=== PATIENT | male | born 1945 | race Caucasian/White ===

== ENCOUNTER → 2016-11-06 | Outpatient (CLI) | payer MEDICARE ==
[~2016-11-06] VITALS: Ht 172.7 cm; Wt 90.9 kg
[~2016-11-06] MED LIST: ALTACE10 M1 PO; CLINORIL200 MG PO; CLOPIDOGREL PO; FENOFIBRATE145 MG PO; GABAPENTIN300 M1 PO; GLUCOPHAGE1000 MG PO; LIPITOR 80MG80 MG PO; METFORMIN500 MG PO; NORCO 325 MG-51 TAB PO; NORTRIPTYLINE H10 M2 PO; PLAVIX 75MG TAB75 MG PO; PROSCAR PO; ZESTRIL10 M1 PO
[2016-11-06 12:47] VITALS: BP 135/92
[2016-11-06 15:00] VITALS: BP 132/78
--- NOTE | 2016-11-06 15:00 | NUR ---
Notify AG Lacy, that IV Abx complete. Request dressing orders. Instructs to apply wet to dry dressing, no add'l PO Abx orders. Inform pt that provider requests he return after to be admitted through the ER. Pt reports that he will return either Thursday night or Thursday morning and be admitted if need be. Dressing applied to 3rd digit on L foot. All of 3rd digit noted to be red, warm and swollen. Posterior pad of toe with large calloused area that is torn away from toe. Pinpoint necrotic area in the center of this loose tissue. Lift skin away to visualize underlying tissue, note moderate amount purulent drainage below. Cleanse area with NS, apply wet guaze and dry kerlix. Send remainder of supplies home with pt and instruct to remove for showers and reapply wet to dry.
== END ==
LOC: RAD 11:29 → AMSURD 11:29
DX: L03.90 Cellulitis, unspecified (principal); L97.909 Non-pressure chronic ulcer of unspecified part of unspecified lower leg with unspecified severity
CPT/HCPCS: J1956; J3370; J7050

== ENCOUNTER 2016-11-07 20:50 | Outpatient (RCR) | payer MEDICARE ==
[~2016-11-07] VITALS: Ht 172.7 cm; Wt 90.9 kg
[~2016-11-07 20:50] MED LIST changes: -CLOPIDOGREL PO; -GLUCOPHAGE1000 MG PO; -LIPITOR 80MG80 MG PO; -NORTRIPTYLINE H10 M2 PO; -ZESTRIL10 M1 PO
[2016-11-07 21:05] VITALS: BP 139/80
[2016-11-07 23:55] VITALS: BP 140/77
[2016-11-08 10:07] VITALS: BP 122/107
[2016-11-08 11:05] VITALS: BP 132/77
[2016-11-08 18:54] VITALS: BP 140/77
[2016-11-08 20:24] VITALS: BP 168/67
[2016-11-09 08:00] VITALS: BP 136/80
[2016-11-09 20:00] VITALS: BP 130/90
[2016-11-09 21:01] VITALS: BP 132/66
[2016-11-10 08:00] VITALS: BP 136/86
[2016-11-10 09:29] VITALS: BP 141/67
[2016-11-10 19:14] VITALS: BP 128/83
[2016-11-10 20:41] VITALS: BP 138/78
[2016-11-11 07:29] VITALS: BP 134/79
[2016-11-11 19:22] VITALS: BP 155/95
[2016-11-11 20:54] VITALS: BP 139/78
[2016-11-12 08:30] VITALS: BP 138/71
[2016-11-12 09:47] VITALS: BP 123/69
== END 2016-11-12 11:00 | disposition home or self-care (01) ==
LOC: AMSURD 20:50
DX: L97.909 Non-pressure chronic ulcer of unspecified part of unspecified lower leg with unspecified severity (principal); L03.90 Cellulitis, unspecified
CPT/HCPCS: J1956; J3370; J7050

== ENCOUNTER → 2016-11-07 | Outpatient (CLI) | payer MEDICARE ==
[2016-11-06 15:00] VITALS: BP 132/78
== END ==
LOC: LAB 21:01
DX: L03.032 Cellulitis of left toe (principal); L89.899 Pressure ulcer of other site, unspecified stage

== ENCOUNTER → 2016-11-10 | Outpatient (CLI) | payer MEDICARE ==
[2016-11-09 21:01] VITALS: BP 132/66
[~2016-11-10] MED LIST changes: +CLOPIDOGREL PO; +GLUCOPHAGE1000 MG PO; +LIPITOR 80MG80 MG PO; +NORTRIPTYLINE H10 M2 PO; +ZESTRIL10 M1 PO
== END ==
LOC: LAB 08:01
DX: Z01.89 Encounter for other specified special examinations (principal)

== ENCOUNTER 2016-12-01 19:05 | Outpatient (RCR) | payer MEDICARE ==
[~2016-12-01] VITALS: Ht 175.3 cm; Wt 90.9 kg
[~2016-12-01 19:05] MED LIST changes: -CLOPIDOGREL PO; -GLUCOPHAGE1000 MG PO; -LIPITOR 80MG80 MG PO; -NORTRIPTYLINE H10 M2 PO; -ZESTRIL10 M1 PO
[2016-12-01 19:20] VITALS: BP 146/89
--- NOTE | 2016-12-01 19:30 | NUR ---
Spoke with Nona, pharmacist at [facility] regarding vancomycin dosing orders and trough. Per Nona, ok to start infusion after drawing lab for vancomycin trough. Do not need to wait for results as indicated on EMAR alert.
[2016-12-01 21:14] VITALS: BP 147/82
[2016-12-02 08:53] VITALS: BP 131/83
[2016-12-02 09:16] VITALS: BP 135/82
--- NOTE | 2016-12-02 12:55 | NUR ---
Per Nona pharmacist at [facility], patient is to have a creatinine and vancomycin trough drawn 12/03/16 prior to 0800 dose. Dose is to be held until [facility] pharmacy has been notified of results of creatinine level. [facility] pharmacist will provide further instruction regarding administration of vancomycin at that time. Charge nurse Isabel Cox RN and Clinical coordinator Janelle Barrios RN notified of the above.
[2016-12-02] MEDS ORDERED: GLUCOPHAGE1000 MG PO (15:50)
[2016-12-02] MEDS ORDERED: CLOPIDOGREL PO (15:51)
[2016-12-02] MEDS ORDERED: LIPITOR 80MG80 MG PO (15:51)
[2016-12-02] MEDS ORDERED: ZESTRIL10 M1 PO (15:51)
[2016-12-02] MEDS ORDERED: NORTRIPTYLINE H10 M2 PO (15:52)
[2016-12-02 19:27] VITALS: BP 142/83
[2016-12-02 21:10] VITALS: BP 155/87
[2016-12-03 08:44] VITALS: BP 139/85
[2016-12-03 10:05] VITALS: BP 134/75
[2016-12-03 15:07] VITALS: BP 153/78
[2016-12-03 16:54] VITALS: BP 128/75
[2016-12-03 21:25] VITALS: BP 155/74
--- NOTE | 2016-12-03 21:25 | NUR ---
PT AMBULATORY TO ROOM 205 FOR OUTPATIENT VANCOMYCIN. PT UPDATED ON PLAN OF CARE. PT IS IN CHAIR WATCHING TV WITH CALL LIGHT IN REACH. PT DENIES NEEDS AT THIS TIME. VANCOMYCIN INFUSING PER ORDERS THROUGH PICC LINE IN RIGHT UPPER ARM WITHOUT DIFFICULTY.
[2016-12-03 23:03] VITALS: BP 155/100
[2016-12-04] VITALS (7 sets, daily range): BP systolic 128–166; BP diastolic 75–91
[2016-12-05 07:15] VITALS: BP 136/88
[2016-12-05 09:02] VITALS: BP 135/88
--- NOTE | 2016-12-05 10:12 | NUR ---
LAB CALLS WITH VANC TROUGH RESULTS; 19.67. THIS IS REPORTED TO WILLIAM AT [facility]. HE REPORTS TO CONTINUE SAME REGIMINE AND RECHECK A TROUGH IN 5 DAYS.
--- NOTE | 2016-12-05 10:18 | NUR ---
PATIENT NOTIFIED VIA PHONE TO KEEP SAME TREATMENT SCHEDULE. HE IS AGREEABLE TO THIS.
[2016-12-05 14:20] VITALS: BP 145/83
[2016-12-05 21:20] VITALS: BP 142/87
[2016-12-05 22:56] VITALS: BP 152/84
[2016-12-06 07:14] VITALS: BP 126/81
[2016-12-06 08:58] VITALS: BP 135/77
[2016-12-06 14:09] VITALS: BP 140/79
[2016-12-06 15:47] VITALS: BP 134/74
[2016-12-06 21:08] VITALS: BP 151/84
[2016-12-06 22:45] VITALS: BP 136/81
[2016-12-07 07:20] VITALS: BP 146/87
[2016-12-07 08:50] VITALS: BP 124/74
--- NOTE | 2016-12-07 08:55 | NUR ---
Pt refused breakfast this am as having breakfast w/ . Pt denies any side effects from vancomycin. Pt discharge ambulatory w/ steady gait.
[2016-12-07 14:16] VITALS: BP 119/82
[2016-12-07 15:46] VITALS: BP 139/75
[2016-12-07 21:05] VITALS: BP 142/87
[2016-12-07 22:54] VITALS: BP 153/87
[2016-12-08 07:28] VITALS: BP 131/74
[2016-12-08 08:58] VITALS: BP 127/71
--- NOTE | 2016-12-08 09:40 | NUR ---
Called critical vanco trough critical value 24.54 to John, pharmacist. Hold 1400 dose today. John will enter lab and dosage changes.
[2016-12-08 19:20] VITALS: BP 154/84
[2016-12-08 21:02] VITALS: BP 146/84
[2016-12-09 06:24] VITALS: BP 136/79
[2016-12-09 08:24] VITALS: BP 119/64
[2016-12-09 19:06] VITALS: BP 138/81
[2016-12-09 20:48] VITALS: BP 125/79
--- NOTE | 2016-12-10 07:10 | NUR ---
lab vanc trough and creatinine drawn via PICC line, notified pharmacy for order clarification, told to dose if creatinine is in patients normal range, if not to contact them
[2016-12-10 09:39] VITALS: BP 113/64
[2016-12-10 11:40] VITALS: BP 127/78
[2016-12-10 21:15] VITALS: BP 126/83
[2016-12-10 22:52] VITALS: BP 131/75
[2016-12-11 10:35] VITALS: BP 121/70
[2016-12-11 12:20] VITALS: BP 119/68
[2016-12-11 21:39] VITALS: BP 135/73
[2016-12-11 23:14] VITALS: BP 132/72
[2016-12-12 08:14] VITALS: BP 133/82
[2016-12-12 09:57] VITALS: BP 141/76
[2016-12-12 20:03] VITALS: BP 164/85
[2016-12-12 22:05] VITALS: BP 160/81
[2016-12-13 09:42] VITALS: BP 128/74
[2016-12-13 10:00] VITALS: BP 143/76
[2016-12-13 20:06] VITALS: BP 146/84
[2016-12-13 21:42] VITALS: BP 142/86
[2016-12-14 08:16] VITALS: BP 142/76
[2016-12-14 10:00] VITALS: BP 131/67
[2016-12-14 20:04] VITALS: BP 151/81
[2016-12-14 21:49] VITALS: BP 152/79
[2016-12-15 08:00] VITALS: BP 128/81
[2016-12-15 09:44] VITALS: BP 131/72
--- NOTE | 2016-12-15 13:57 | NUR ---
TELEPHONE ORDER FROM CRISTIANO CHRISTIANSEN TO DISCONTINUE VANC. LEAVE PICC INTACT AND PERFORM ROUTINE PICC CARE WEEKLY.
[2016-12-22 11:30] VITALS: BP 151/87
[2016-12-29 09:57] VITALS: BP 155/89
== END 2016-12-29 18:00 | disposition home or self-care (01) ==
LOC: AMSURD 19:05
DX: M86.9 Osteomyelitis, unspecified (principal); S91.302D Unspecified open wound, left foot, subsequent encounter; Z79.2 Long term (current) use of antibiotics
CPT/HCPCS: J1644; J3370; J7050

== ENCOUNTER → 2016-12-01 | Outpatient (CLI) | payer MEDICARE ==
[2016-11-12 09:47] VITALS: BP 123/69
== END ==
LOC: RAD 09:21
DX: L03.032 Cellulitis of left toe (principal)

== ENCOUNTER → 2016-12-03 | Outpatient (CLI) | payer MEDICARE ==
[2016-12-02 21:10] VITALS: BP 155/87
[~2016-12-03] MED LIST changes: +CLOPIDOGREL PO; +GLUCOPHAGE1000 MG PO; +LIPITOR 80MG80 MG PO; +NORTRIPTYLINE H10 M2 PO; +ZESTRIL10 M1 PO
== END ==
LOC: LAB 07:52
DX: M86.8X7 Other osteomyelitis, ankle and foot (principal); Z51.81 Encounter for therapeutic drug level monitoring; Z79.2 Long term (current) use of antibiotics

== ENCOUNTER → 2016-12-05 | Outpatient (CLI) | payer MEDICARE ==
[2016-12-04 22:50] VITALS: BP 152/84
== END ==
LOC: LAB 07:05
DX: M86.8X7 Other osteomyelitis, ankle and foot (principal); Z79.2 Long term (current) use of antibiotics

== ENCOUNTER → 2016-12-08 | Outpatient (CLI) | payer MEDICARE ==
[2016-12-07 22:54] VITALS: BP 153/87
== END ==
LOC: LAB 07:14
DX: M86.8X7 Other osteomyelitis, ankle and foot (principal); Z79.2 Long term (current) use of antibiotics

== ENCOUNTER → 2016-12-10 | Outpatient (CLI) | payer MEDICARE ==
[2016-12-09 20:48] VITALS: BP 125/79
== END ==
LOC: LAB 07:06
DX: M86.9 Osteomyelitis, unspecified (principal); Z51.81 Encounter for therapeutic drug level monitoring; Z79.2 Long term (current) use of antibiotics

== ENCOUNTER → 2016-12-15 | Outpatient (CLI) | payer MEDICARE ==
[2016-12-14 21:49] VITALS: BP 152/79
== END ==
LOC: LAB 08:05
DX: M86.9 Osteomyelitis, unspecified (principal)

== ENCOUNTER 2017-01-01 10:26 | Emergency (ER) | payer MEDICARE ==
[~2017-01-01] VITALS: Wt 93.3 kg
[2017-01-01] MEDS ORDERED: CIPRO500 M1 PO (14:34)
[2017-01-01] MEDS ORDERED: FLAGYL500 M1 PO (14:34)
[2017-01-01 14:47] VITALS: BP 171/83
== END 2017-01-01 14:48 | disposition home or self-care (01) ==
LOC: ED 10:26
DX: K52.9 Noninfective gastroenteritis and colitis, unspecified (principal); R31.9 Hematuria, unspecified; I25.10 Atherosclerotic heart disease of native coronary artery without angina pectoris; E11.9 Type 2 diabetes mellitus without complications; Z79.84 Long term (current) use of oral hypoglycemic drugs; I10 Essential (primary) hypertension; E78.5 Hyperlipidemia, unspecified; K42.9 Umbilical hernia without obstruction or gangrene; Z79.02 Long term (current) use of antithrombotics/antiplatelets
CPT/HCPCS: Q9967

== ENCOUNTER 2018-01-25 14:04 | Inpatient (IN) | payer OTHER ==
[~2018-01-25] VITALS: Ht 175.3 cm; Wt 90.9 kg
[~2018-01-25 14:04] MED LIST changes: +CIPRO500 M1 PO; +FLAGYL500 M1 PO
[2018-01-25 14:57] LABS: ALBUMIN 4.3 g/dL (3.5-5.0); CALCIUM 9.5 mg/dL (8.4-10.2); POTASSIUM 4.9 mmol/L (3.6-5.0); TOTAL PROTEIN 7.8 g/dL (6.3-8.2)
[2018-01-25 15:10] LABS: HEMATOCRIT 39.5 % (42.0-52.0); MEAN CELL VOLUME 93 fl (78-100); MEAN CORPUSCULAR HEMOGLOBIN 31 pg (27-31); MEAN CORPUSCULAR HGB CONC 33 g/dL (33-37); MEAN PLATELET VOLUME 11.4 fl (7.4-10.4); PLATELET COUNT 156 K/mm3 (130-400); RED BLOOD COUNT 4.24 M/mm3 (4.20-5.60); RED CELL DISTRIBUTION WIDTH 12.6 % (11.5-14.5)
[2018-01-25 15:27] LABS: BAND 4 % (0-10); LYMPHOCYTE 5 % (20-51); MONOCYTE 6 % (3-10); NEUTROPHILS 84 % (42-75)
[2018-01-25 15:37] LABS: URINE COLOR YELLOW
[2018-01-25 15:38] LABS: URINE APPEARANCE CLOUDY; URINE BILIRUBIN NEGATIVE (NEGATIVE); URINE BLOOD 50 ery/uL (NEGATIVE); URINE KETONE NEGATIVE (NEGATIVE); URINE LEUKOCYTE ESTERASE 2+ (NEGATIVE); URINE NITRATE NEGATIVE (NEGATIVE); URINE PROTEIN(semi-quant) 1+ mg/dL (NEGATIVE); URINE UROBILINOGEN NORMAL (NORMAL)
[2018-01-25 15:39] LABS: URINE MUCUS PRESENT (NOT PRESENT)
[2018-01-25 15:48] LABS: PROTHROMBIN TIME 9.3 SECONDS (9.0-12.0)
[2018-01-25 16:35] VITALS: BP 118/64
[2018-01-25 17:24] VITALS: BP 144/83
[2018-01-25 18:04] VITALS: BP 144/83
--- NOTE | 2018-01-25 19:00 | NUR ---
Bedside shift report received from Karen Berg RN. At 1840 Pt had been walking in hallway, gait steady.
--- NOTE | 2018-01-25 20:49 | NUR ---
New bag of Normal Saline hung. Continues to infuse at 125ml/hr via IV pump.
--- NOTE | 2018-01-25 20:59 | NUR ---
No c/o's of pain, when asked pt c/o of lower back pain and posterior upper leg pain. Rated pain 5-6 out 10. Hydrocodone 2 PO given.
--- NOTE | 2018-01-25 21:48 | NUR ---
2129 Pt requesting to go smoke out side. Pt reminded that the hospital is a smoke free facility. Offered to get pt a nicotine patch and medication for anxiety. Pt agreed. 2139 Notified Priti Cortes APRN. Order received for nicotine patch and ativan PO TID PRN. 2148 Nicotine patch applied. Ativan 0.5mg PO given. Pt notified he was not able to smoke. Pt stated understanding.
--- NOTE | 2018-01-25 22:00 | NUR ---
Pt up ambulating in hallway. Stated he got a snack out of the vending machine. Pt held up a pack of sticky buns.
[2018-01-25 23:07] VITALS: BP 125/77
--- NOTE | 2018-01-25 23:58 | NUR ---
2350 Up ambulating in hallway, pt seen on video walking out of the front door of facility and smoking a cigarette. Myself and Nathalia Buckner RN went to front door of facility and meant pt walking back into hospital. Pt admitted to smoking. Pt re-educated on the no smoking policy. Pt also re-educated not being able to smoke because he is wearing a nicotine patch. Pt stated he knew, and would not do it again. Pt ambulated back to room with newspaper and said good night.
--- NOTE | 2018-01-26 00:09 | NUR ---
Q hourly checks done. Chair alarm has been set. When pt stands chair alarm sounds and pt turn alarm off. I have explained to pt that all pt's have a alarm set. Pt agreed but stated he did not like it. Pt has ambulated at 1850, 2000, 2200 and 2350. Pt gait steady, denies feeling lite headed or dizzy.
--- NOTE | 2018-01-26 02:27 | NUR ---
Bed alarm sounded. Pt sitting up in bed. Pt informed that he would need to use the call light when needing to get up. Pt informed the bed alarm is set when he is in it. Pt stated understanding. Pt requesting to have room privilages. I informed the pt, I would pass his request on to day shift so they would be able to ask for a order for room privilages. Pt agreed to use call light. Ambulated to the bathroom with stand by assist. Gait steady. IV fluids of NS infusing at 125ml/hr. C/o of lower back "aching." Offered tylenol or motrin. Pt requested tylenol PO. Tylenol PO given.
[2018-01-26 02:39] VITALS: BP 138/79
--- NOTE | 2018-01-26 04:17 | NUR ---
Q hourly checks done. Call light with in reach of pt. Pt awake and a/o x 3. Requesting motrin. Motrin given at this time for lower back pain. Rated pain 5 out 10.
[2018-01-26 06:23] VITALS: BP 134/71
[2018-01-26 06:23] LABS: HEMATOCRIT 33.1 % (42.0-52.0); HEMOGLOBIN 10.7 g/dL (13.5-18.0); MEAN CELL VOLUME 93 fl (78-100); MEAN CORPUSCULAR HEMOGLOBIN 30 pg (27-31); MEAN CORPUSCULAR HGB CONC 32 g/dL (33-37); MEAN PLATELET VOLUME 10.6 fl (7.4-10.4); PLATELET COUNT 135 K/mm3 (130-400); RED BLOOD COUNT 3.55 M/mm3 (4.20-5.60); RED CELL DISTRIBUTION WIDTH 12.6 % (11.5-14.5); WHITE BLOOD COUNT 8.2 K/mm3 (4.8-10.8)
[2018-01-26 06:42] LABS: ALBUMIN 3.1 g/dL (3.5-5.0); CALCIUM 8.4 mg/dL (8.4-10.2); POTASSIUM 3.7 mmol/L (3.6-5.0); TOTAL PROTEIN 5.9 g/dL (6.3-8.2)
[2018-01-26 06:58] LABS: BAND 1 % (0-10); LYMPHOCYTE 13 % (20-51); MONOCYTE 8 % (3-10); NEUTROPHILS 77 % (42-75)
[2018-01-26 07:01] LABS: TOTAL BILIRUBIN 0.6 mg/dL (0.2-1.3)
--- NOTE | 2018-01-26 07:07 | NUR ---
Bedside shift report given to Rachel Anton RN
[2018-01-26 11:04] VITALS: BP 155/85
--- NOTE | 2018-01-26 11:05 | NUR ---
Kerry James APRN at bedside with patient and .
[2018-01-26 14:55] VITALS: BP 142/75
[2018-01-26 18:15] VITALS: BP 152/76
--- NOTE | 2018-01-26 19:50 | NUR ---
Report received from Pamela ALVAREZ. Up in chair with IV infusing NS at 125 ML/HR. Site patent. Rates pain to lower back and legs 07/30. "dull contant ache". Has hx of chronic pain. Assessment completed. States does have some "burning with urination. Bowels moved yesterday. Reinforced and reinstructed on room priviledges. Discussed if he wants to go for a walk outside of room will need to notify staff. Verbalizes understanding and is cooperative and congenial. Denies wants or needs. Call light in reach.
[2018-01-26 23:10] VITALS: BP 131/70
--- NOTE | 2018-01-27 00:13 | NUR ---
Resting with eyes closed. No signs of pain or distress. Up ad-nicole in room. IVF infusing at 125 ML/HR.
--- NOTE | 2018-01-27 02:08 | NUR ---
FLUIDS DECREASED TO 75 MLS/HR PER PROVIDER ORDER.
[2018-01-27 03:02] VITALS: BP 155/84
[2018-01-27 06:19] VITALS: BP 132/77
--- NOTE | 2018-01-27 07:19 | NUR ---
Report to Karen ALVAREZ.
--- NOTE | 2018-01-27 08:36 | NUR ---
Pt up in room ad nicole. IV fluids infusing to IV in L hand per order. Pt reports back pain 3/10. Reports that he is feeling much better today than upon admit. Removed nicotine patch from L shoulder and replaced. Lungs sounds diminished but no adventitious lung sounds heard.
[2018-01-27 11:09] VITALS: BP 147/87
--- NOTE | 2018-01-27 11:30 | NUR ---
Ana Cortes APRN in room to speak with pt and spouse.
[2018-01-27 15:00] VITALS: BP 152/80
--- NOTE | 2018-01-27 18:02 | NUR ---
Pt notifies this RN of "sores" in and around his mouth. Reports noticing sores this afternoon. Denies difficulty swallowing or breathing. Is noted to have small blisters along edge of both upper and lower lips. Pt also reports some along inside of mouth. Notify provider, Ana Cortes APRN.
[2018-01-27 18:45] VITALS: BP 169/88
--- NOTE | 2018-01-27 19:10 | NUR ---
BEDSIDE SHIFT REPORT RECIEVED FROM KIM HOLDEN. PATIENT SITTING UP IN CHAIR WITH CALL LIGHT WITHIN REACH.
--- NOTE | 2018-01-27 21:54 | NUR ---
PATIENT SITTING UP IN CHAIR WATCHING TV. SHIFT ASSESSMENT COMPLETED AT THIS TIME. PATIENT A/O X4. RATING PAIN 5/10 TO BACK. LUNGS WITH EXPIRATORY WHEEZES THROUGHOUT, BREATHING TX GIVEN WITH NO CHANGE. PATIENT REPORTS DRY COUGH AND DENIES SHORTNESS OF BREATH. IV TO LEFT HAND CDI, INFUSING NS @ 125 MLS/HR, COVERED WITH COBAN. PRN ATIVAN GIVEN PER PATIENT REQUEST. NICOTINE PATCH CDI TO LEFT SHOULDER. BLISTERS NOTED TO TOP AND BOTTOM LIPS, PATIENT CONTINUES TO APPLY CHAPSTICK, PROVIDER ANISA VICTOR APRN TO ASSESS PATIENT. PATIENT EDUCATED TO NOTIFY STAFF IF HE STARTS TO HAVE ANY DIFFICULTIES SWALLOWING OR BREATHING. PATIENT WITH CONTINUED ROOM PRIVILEGES. HS MEDICATIONS GIVEN WITHOUT DIFFICULTIES. PATIENT WITHOUT FURTHER NEEDS, WILL CONTINUE TO MONITOR. CALL LIGHT WITHIN REACH.
[2018-01-27 23:22] VITALS: BP 167/80
[2018-01-27] MEDS ORDERED: TYLENOL325 M1 PO (23:35)
[2018-01-28 02:21] VITALS: BP 145/71
[2018-01-28 06:01] VITALS: BP 160/80
[2018-01-28 08:58] LABS: EOS # 0.1 (0.04-0.40); EOS % 1.1 % (0.0-4.0); HEMATOCRIT 32.7 % (42.0-52.0); HEMOGLOBIN 10.5 g/dL (13.5-18.0); LYMPH# 1.1 (1.50-4.00); MEAN CELL VOLUME 93 fl (78-100); MEAN CORPUSCULAR HEMOGLOBIN 30 pg (27-31); MEAN CORPUSCULAR HGB CONC 32 g/dL (33-37); MEAN PLATELET VOLUME 9.9 fl (7.4-10.4); MONO # 0.8 (0.20-0.80); NEU # 5.4 (1.40-6.50); PLATELET COUNT 168 K/mm3 (130-400); RED BLOOD COUNT 3.52 M/mm3 (4.20-5.60); RED CELL DISTRIBUTION WIDTH 12.6 % (11.5-14.5); WHITE BLOOD COUNT 7.4 K/mm3 (4.8-10.8)
[2018-01-28 09:12] LABS: ALBUMIN 3.4 g/dL (3.5-5.0); POTASSIUM 4.4 mmol/L (3.6-5.0); TOTAL BILIRUBIN 0.6 mg/dL (0.2-1.3); TOTAL PROTEIN 6.4 g/dL (6.3-8.2)
--- NOTE | 2018-01-28 09:30 | NUR ---
Pt reports that he is just not feeling well today. Upon elaborating pt states that chronic low back and leg pain is increased this AM, also that chest wall is hurting from forceful, non-productive cough. Pt states that he does not feel well enough to leave today. Is concerned about pneumonia, lungs CTA, no adventitious lung sounds noted. Pt is given IS and instructed on use. CXR and labs ordered.
--- NOTE | 2018-01-28 09:53 | NUR ---
Pt to radiology dept via .
[2018-01-28 11:02] VITALS: BP 142/78
[2018-01-28 15:14] VITALS: BP 140/72
--- NOTE | 2018-01-28 16:57 | NUR ---
Reduced IVF to 100ml/hr per WO of Kerry Grace APRN.
[2018-01-28 18:11] VITALS: BP 109/75
--- NOTE | 2018-01-28 19:52 | NUR ---
Report received from Karen ALVAREZ. Up in chair. New bag of IVF hung to run at 100 ml/Hr. Site patent. Rates pain to back and legs 05/30. Assessment completed. Verbalizes understanding of NPO status after Midnight. Up ad-nicole in room.
--- NOTE | 2018-01-28 21:08 | NUR ---
Scheduled PM medications taken. PRN Ativan given per request. Lab in to draw blood.
[2018-01-28 23:22] VITALS: BP 158/72
--- NOTE | 2018-01-29 00:10 | NUR ---
NPO now for ultrasound in AM
[2018-01-29 03:29] VITALS: BP 124/67
--- NOTE | 2018-01-29 05:30 | NUR ---
Having pain in back and legs. 08/30. Requesting pain relief. CATTLE DRIVER contacted due to NPO status for Ultra sound this AM. Order received for Morphine 4 MG IV now.
[2018-01-29 06:08] VITALS: BP 157/81
--- NOTE | 2018-01-29 07:26 | NUR ---
Report to Corine ALVAREZ.
--- NOTE | 2018-01-29 09:45 | NUR ---
PT RETURNS FROM RADIOLOGY FOR ULTRASOUND OF GALBLADDER. PT NO LONGER NPO AFTER PROCEDURE. GETS BREAKFAST, TAKES SCHEDULED MEDS ORDERED. STATES HE ONLY HAS PAIN AT A 3/4 WHICH IS NORMAL FOR HIM HE STATES. DENIES ANY OTHER NEEDS AT THIS TIME. WILL CONTINUE TO MONITOR.
--- NOTE | 2018-01-29 10:15 | NUR ---
PT'S CALLS AND WOULD LIKE AN UPDATE. STATES SHE IS IRRITATED WITH HIS LEVEL OF CARE. STATES HE HAS NOT SEEN A DOCTOR THE ENTIRE TIME HE HAS BEEN HERE. DOES STATE HE HAS SEEN AN PRODUCTION CLERKS SUPERVISOR. THIS NURSE EXPLAINS TO HER THAT IS THE HOSPITALIST, AND THE ONE WHO WILL SEE HIM MOST OFTEN WHILE HE IS HERE. STATES SHE WANTS TO KNOW WHAT'S GOING ON WITH HIM, THAT SHE IS AFRAID BECAUSE OF THE "INFECTED BLOOD" AND SHE DOESN'T KNOW WHAT WE ARE DOING TO MAKE IT BETTER. THIS NURSE IS ABLE TO EXPLAIN WHAT WE ARE DOING AT THIS TIME AND THAT THIS NURSE WILL TALK WITH Radha CHRISTIANSEN SO WE CAN HAVE A CLEAR PICTURE OF THE CARE. IS OKAY WITH THIS PLAN AND WOULD LIKE A CALL BACK AFTER WE TALK.
[2018-01-29 11:00] VITALS: BP 150/85
[2018-01-29 15:00] VITALS: BP 142/76
--- NOTE | 2018-01-29 17:36 | NUR ---
O IN TO TALK WITH PT ABOUT DX. INFORMS PT THAT HIS SEPSIS WAS CAUSED FROM THE INFECTION IN THE BLADDER AND THAT INFECTION POSSIBLY BECAME SEPTIC BECAUSE OF URINE STAYING IN THE BLADDER DUE TO AN ENLARGED PROSTATE. ALSO INFORMED PT THAT THEY FOUND AN ANEURYSM IN HIS LOWER ABD AND THAT THE PLAN IS TO WORK ON HIS BP MEDS TO CONTROL HIS BP BETTER AND TO ALSO CHANGE HIM TO PO ABX TO SEE HOW HE TOLERATES IT. ENCOUAGES PT TO FOLLOW UP WITH PRIMARY CARE AND TO DISCUSS ALL OF THESE THINGS WITH HIM. WE WILL NEED TO PRINT A PACKET FOR PT TO TAKE TO PRIMARY PROVIDER TO EXPLAIN IT ALL. PT VERBALIZES UNDERSTANDING AND WILL INFORM HIS OF THE SITUATION. THIS NURSE OFFERS TO TALK TO IF SHE HAS ANY QUESTIONS. NO OTHER NEEDS NOTED AT THIS TIME. WILL CONTINUE TO MONITOR.
[2018-01-29 19:00] VITALS: BP 171/84
--- NOTE | 2018-01-29 19:42 | NUR ---
Report received from Corine ALVAREZ. Up in chair. IVF D/C'd at this time per order. Pain level 3/10, which is acceptable for him. Has visitor in room. Up ad-nicole. Denies wants or needs.
--- NOTE | 2018-01-29 21:00 | NUR ---
Assessment completed. INT patent to RFA. Last dose of Rocephin given over 3 minutes. Site patent. Discussed with patient new orders to start Omnicef tomorrow. Labs on Thursday. Denies further wants or needs.
[2018-01-29 23:02] VITALS: BP 172/90
--- NOTE | 2018-01-30 00:29 | NUR ---
Rests with eyes closed. No signs of pain or distress.
--- NOTE | 2018-01-30 01:00 | NUR ---
REPORT RECEIVED FROM STELLA Bennett LPN.
--- NOTE | 2018-01-30 01:10 | NUR ---
Report to Lela ALVAREZ.
[2018-01-30 03:08] VITALS: BP 142/77
--- NOTE | 2018-01-30 05:40 | NUR ---
PATIENT RATES HIS PAIN A 6/10 AND REQUESTS PRN NORCO. PATIENT IS ADMINISTERED THE MEDICATION AND CONSUMES IT WITH NO OBVIOUS DIFFICULTY. PATIENT DENIES ANY OTHER NEEDS AT THIS TIME, AND RETURNS TO BED. PATIENT DOES NOT APPEAR TO BE IN ANY OBVIOUS DISTRESS AT THIS TIME.
[2018-01-30 06:20] VITALS: BP 120/68
[2018-01-30 11:04] VITALS: BP 138/77
[2018-01-30 15:02] VITALS: BP 162/80
--- NOTE | 2018-01-30 17:14 | NUR ---
PT HAS HAD AN UNEVENTFUL DAY. TOLERATED PO MEDICATIONS WELL. HAS BEEN UP AND AROUND WALKING TO STAY FROM GETTING STIFF. DENIES ANY PAIN BEYOND HIS NORMAL CHRONIC PAIN AT A 05/30. REPORTED THAT SAID HE WOULD GET TO GO HOME TOMORROW. PT IS VERY READY HE STATES. NO OTHER NEED NOTED AT THIS TIME. WILL CONTINUE TO MONITOR.
[2018-01-30 18:24] VITALS: BP 147/80
[2018-01-30 22:47] VITALS: BP 169/78
[2018-01-31 02:45] VITALS: BP 135/70
[2018-01-31 06:24] VITALS: BP 141/82
--- NOTE | 2018-01-31 07:35 | NUR ---
REPORT RECEIVED FROM ERNESTO ALVAREZ.
[2018-01-31 07:59] LABS: EOS # 0.1 (0.04-0.40); EOS % 1.6 % (0.0-4.0); HEMATOCRIT 32.4 % (42.0-52.0); HEMOGLOBIN 10.5 g/dL (13.5-18.0); LYMPH# 1.8 (1.50-4.00); MEAN CELL VOLUME 92 fl (78-100); MEAN CORPUSCULAR HEMOGLOBIN 30 pg (27-31); MEAN CORPUSCULAR HGB CONC 32 g/dL (33-37); MONO # 0.6 (0.20-0.80); NEU # 5.8 (1.40-6.50); PLATELET COUNT 255 K/mm3 (130-400); RED BLOOD COUNT 3.53 M/mm3 (4.20-5.60); RED CELL DISTRIBUTION WIDTH 12.4 % (11.5-14.5); WHITE BLOOD COUNT 8.6 K/mm3 (4.8-10.8)
--- NOTE | 2018-01-31 07:59 | NUR ---
PATIENT AWAKE AND DRESSED. HE IS READY TO GO HOME AND IS HOPING THAT IS THE PLAN FOR TODAY. LOW BACK ACHE RATED 3/10. RT MIDDLE AND LOWER LUNG DIMINISHED; ALL OTHER IBARRA CTA. 1+ PITTING EDEMA NOTED TO LLE AT ANKLE. PATIENT REPORTS THIS IS CHRONIC AND REPORTS NO INCREASE THAN NORMAL. HE IS FEELING BETTER.
[2018-01-31 08:14] LABS: ALBUMIN 3.4 g/dL (3.5-5.0); CALCIUM 9.1 mg/dL (8.4-10.2); POTASSIUM 3.8 mmol/L (3.6-5.0); TOTAL BILIRUBIN 0.4 mg/dL (0.2-1.3); TOTAL PROTEIN 6.3 g/dL (6.3-8.2)
[2018-01-31] MEDS ORDERED: CEFDINIR300 MG PO (08:34)
[2018-01-31 09:44] VITALS: BP 154/88
--- NOTE | 2018-01-31 09:46 | NUR ---
DC INSTRUCTIONS REVIEWED WITH PATIENT. RX FOR OMNICEF SENT WITH PATIENT. DISPENSE 1 DOSE OF OMNICEF FOR PATIENT TO TAKE THIS EVENING. COPY OF CT SENT WITH PATIENT FOR PCP F/U. HE VERBALIZES UNDERSTANDING TO F/U UA WITH PCP IN 10 DAYS. MEDS SENT HOME WITH PATIENT.
== END 2018-01-31 09:46 | disposition home or self-care (01) | DRG 871 ==
LOC: ED 14:04 → MED/SURG 16:44
PROVIDERS: ADMIT Nurse Practitioner Primary Care
DX: A41.9 Sepsis, unspecified organism (principal); I50.33 Acute on chronic diastolic (congestive) heart failure; N39.0 Urinary tract infection, site not specified; J44.1 Chronic obstructive pulmonary disease with (acute) exacerbation; I11.0 Hypertensive heart disease with heart failure; I25.10 Atherosclerotic heart disease of native coronary artery without angina pectoris; E86.0 Dehydration; Z95.5 Presence of coronary angioplasty implant and graft; E11.9 Type 2 diabetes mellitus without complications; Z79.01 Long term (current) use of anticoagulants; Z95.2 Presence of prosthetic heart valve; F17.210 Nicotine dependence, cigarettes, uncomplicated; B96.20 Unspecified Escherichia coli [E. coli] as the cause of diseases classified elsewhere
CPT/HCPCS: A4216; J0696; J1650; J1940; J2270; J7030; Q9967

== ENCOUNTER 2018-10-18 22:17 | Emergency (ER) | payer OTHER ==
[~2018-10-18] VITALS: Ht 175.3 cm; Wt 93.2 kg
[~2018-10-18 22:17] MED LIST changes: +CEFDINIR300 MG PO; +TYLENOL325 M1 PO
[2018-10-18] MEDS ORDERED: IRON 100 PLUS 21 TAB PO (23:27)
[2018-10-19 00:15] VITALS: BP 133/89
== END 2018-10-19 00:15 | disposition home or self-care (01) ==
LOC: ED 22:17
DX: S70.11XA Contusion of right thigh, initial encounter (principal); I25.10 Atherosclerotic heart disease of native coronary artery without angina pectoris; I10 Essential (primary) hypertension; I25.2 Old myocardial infarction; F17.210 Nicotine dependence, cigarettes, uncomplicated; Z95.5 Presence of coronary angioplasty implant and graft; W01.0XXA Fall on same level from slipping, tripping and stumbling without subsequent striking against object, initial encounter; Y92.009 Unspecified place in unspecified non-institutional (private) residence as the place of occurrence of the external cause; Z79.84 Long term (current) use of oral hypoglycemic drugs

== ENCOUNTER 2020-08-06 20:49 | Emergency (ER) | payer OTHER ==
[~2020-08-06 20:49] MED LIST changes: +IRON 100 PLUS 21 TAB PO
[2020-08-06 21:45] LABS: BASO # 0.05 (0.02-0.10); EOS # 0.08 (0.04-0.40); EOS % 0.9 % (0.0-4.0); HEMATOCRIT 40.4 % (42.0-52.0); HEMOGLOBIN 13.4 g/dL (13.5-18.0); MEAN CELL VOLUME 92 fl (78-100); MEAN CORPUSCULAR HEMOGLOBIN 31 pg (27-31); MEAN CORPUSCULAR HGB CONC 33 g/dL (33-37); MEAN PLATELET VOLUME 10.6 fl (7.4-10.4); MONO # 0.49 (0.20-0.80); NEU # 6.26 (1.40-6.50); PLATELET COUNT 177 K/mm3 (130-400); RED BLOOD COUNT 4.37 M/mm3 (4.20-5.60); RED CELL DISTRIBUTION WIDTH 11.9 % (11.5-14.5)
[2020-08-06 21:47] LABS: ALBUMIN 4.5 g/dL (3.4-4.8); POTASSIUM 4.3 mmol/L (3.5-5.1)
[2020-08-06 21:48] LABS: CALCIUM 9.9 mg/dL (8.3-10.5)
[2020-08-06 21:49] LABS: TOTAL PROTEIN 7.6 g/dL (6.2-8.1)
[2020-08-06 21:51] LABS: TOTAL BILIRUBIN 0.5 mg/dL (0.2-1.2)
[2020-08-06] MEDS ORDERED: CEPHALEXIN500 M1 PO (23:10)
[2020-08-06 23:18] VITALS: BP 117/79
== END 2020-08-06 23:18 | disposition home or self-care (01) ==
LOC: ED 20:49
PROVIDERS: Nurse Practitioner
DX: S61.012A Laceration without foreign body of left thumb without damage to nail, initial encounter (principal); I10 Essential (primary) hypertension; I25.10 Atherosclerotic heart disease of native coronary artery without angina pectoris; F17.210 Nicotine dependence, cigarettes, uncomplicated; Z23 Encounter for immunization; W26.0XXA Contact with knife, initial encounter; Y92.009 Unspecified place in unspecified non-institutional (private) residence as the place of occurrence of the external cause
CPT/HCPCS: 90715